=== PATIENT | female | born 1935 | race Two or more races ===

== ENCOUNTER 2019-05-12 12:20 | Outpatient (CLI) | payer MEDICARE, BC | END 2019-05-12 23:59 | disposition home or self-care (01) | LOC: WOU 12:20 | PROVIDERS: ATTEND Surgery | DX: S50.12XA Contusion of left forearm, initial encounter (principal); X58.XXXA Exposure to other specified factors, initial encounter; Y92.89 Other specified places as the place of occurrence of the external cause; M79.632 Pain in left forearm; R23.4 Changes in skin texture; R26.2 Difficulty in walking, not elsewhere classified; Z85.820 Personal history of malignant melanoma of skin; Z85.3 Personal history of malignant neoplasm of breast; Z79.01 Long term (current) use of anticoagulants | CPT/HCPCS: G0463 ==